=== PATIENT | male | born 1955 | race Caucasian/White ===

== ENCOUNTER 2019-02-06 13:29 | Outpatient (REF) | payer BC, SELFPAY ==
[2019-02-06 19:52] LABS: Anion Gap 7.4 mmol/L (3-11); BUN 25 mg/dL (7-18); CO2 30.6 mmol/L (21.0-32.0); CREATININE 0.98 mg/dL (0.70-1.30); Calcium 9.7 mg/dL (8.5-10.1); Chloride 102 mmol/L (98-107); Glucose 102 mg/dL (70-100); Potassium 4.3 mmol/L (3.5-5.1); Sodium 140 mmol/L (136-145)
== END 2019-02-06 13:49 ==
LOC: NCHCN 13:29
PROVIDERS: PCP Physician Assistant Medical; Visit Provider Physician Assistant Medical
DX: I10 Essential (primary) hypertension (principal)
CPT/HCPCS: 80048

== ENCOUNTER 2020-01-01 09:26 | Outpatient (REF) | payer BC, SELFPAY ==
[2020-01-01 19:40] LABS: ALT 53 U/L (16-63); AST 29 U/L (15-37); Albumin 4.2 g/dL (3.4-5.0); Alkaline Phosphatase 55 U/L (46-116); Anion Gap 9.2 mmol/L (3-11); BUN 20 mg/dL (7-18); Bilirubin, Total 0.8 mg/dL (0.2-1.0); CO2 29.8 mmol/L (21.0-32.0); CREATININE 0.98 mg/dL (0.70-1.30); Calcium 9.4 mg/dL (8.5-10.1); Calculated LDL 106 mg/dL (<100); Chloride 102 mmol/L (98-107); Cholesterol 159 mg/dL (<200); Glucose 98 mg/dL (74-106); HDL Cholesterol 33 mg/dL (40-60); Potassium 4.8 mmol/L (3.5-5.1); Sodium 141 mmol/L (136-145); Triglyceride 104 mg/dL (<150)
[2020-01-01 19:56] LABS: Creatine Kinase 122 U/L (39-308)
== END 2020-01-01 09:46 ==
LOC: NCHCN 09:26
PROVIDERS: PCP Physician Assistant Medical; Visit Provider Nurse Practitioner Family
DX: I10 Essential (primary) hypertension (principal); E78.5 Hyperlipidemia, unspecified
CPT/HCPCS: 80053; 80061; 82550

== ENCOUNTER 2021-01-02 13:22 | Outpatient (REF) | payer OTHER, SELFPAY ==
[2021-01-02 15:16] LABS: Abs Immature Grans 0.02 10^3/uL (0.0-0.06); Absolute Basophil Count 0.06 10^3/uL (0.0-0.2); Absolute Eosinophil Count 0.17 10^3/uL (0.0-0.7); Absolute Lymphocyte Count 1.62 10^3/uL (1.2-3.4); Absolute Monocyte Count 0.58 10^3/uL (0.1-0.8); Absolute Neutrophil Count 3.75 10^3/uL (1.2-6.7); Eosinophils % 2.7; HCT 47.5 % (40.0-50.0); HGB 16.4 g/dL (13.5-17.5); Immature Grans % 0.3; Lymphocytes % 26.1; MCH 31.9 pg (27.0-33.0); MCHC 34.5 % (32.0-36.0); MCV 92.4 fL (80-95); MPV 10.8 fL (8.0-11.0); Monocytes % 9.4; Neutrophils % 60.5; Nucleated RBC 0 %; Platelet Count 277 10^3/uL (130-400); RBC 5.14 10^6/uL (4.36-5.78); RDW 11.8 % (11.8-14.1)
[2021-01-02 15:56] LABS: ALT 45 U/L (16-63); AST 23 U/L (15-37); Albumin 4.3 g/dL (3.4-5.0); Alkaline Phosphatase 62 U/L (46-116); Anion Gap 9.9 mmol/L (3-11); BUN 19 mg/dL (7-18); Bilirubin, Total 0.9 mg/dL (0.2-1.0); CO2 29.1 mmol/L (21.0-32.0); CREATININE 1.1 mg/dL (0.70-1.30); Calcium 9.8 mg/dL (8.5-10.1); Calculated LDL 96 mg/dL (<100); Chloride 104 mmol/L (98-107); Cholesterol 144 mg/dL (<200); Glucose 105 mg/dL (74-106); HDL Cholesterol 35 mg/dL (40-60); Potassium 4.8 mmol/L (3.5-5.1); Sodium 143 mmol/L (136-145); Total Protein 7.2 g/dL (6.4-8.2); Triglyceride 67 mg/dL (<150)
== END 2021-01-02 13:23 | disposition home or self-care (01) ==
LOC: NCHCN 13:22
PROVIDERS: PCP Physician Assistant Medical; Visit Provider Physician Assistant
DX: E78.5 Hyperlipidemia, unspecified (principal); I10 Essential (primary) hypertension
CPT/HCPCS: 80053; 80061; 85025

== ENCOUNTER 2021-07-02 15:28 | Outpatient (REF) | payer MEDICARE, SELFPAY ==
[2021-07-02 21:00] LABS: Anion Gap 9.1 mmol/L (3-11); BUN 18 mg/dL (7-18); CO2 28.9 mmol/L (21.0-32.0); CREATININE 0.9 mg/dL (0.70-1.30); Calcium 9.3 mg/dL (8.5-10.1); Chloride 104 mmol/L (98-107); Glucose 99 mg/dL (74-106); Magnesium 2.2 mg/dL (1.8-2.4); Potassium 4.1 mmol/L (3.5-5.1); Sodium 142 mmol/L (136-145); Vitamin B12 620 pg/mL (193-986)
== END 2021-07-02 15:29 | disposition home or self-care (01) ==
LOC: NCHCN 15:28
PROVIDERS: PCP Physician Assistant Medical; Visit Provider Physician Assistant
DX: I10 Essential (primary) hypertension (principal); R25.2 Cramp and spasm; G62.9 Polyneuropathy, unspecified
CPT/HCPCS: 80048; 82607; 83735

== ENCOUNTER 2022-07-23 10:28 | Outpatient (REF) | payer MEDICARE, SELFPAY ==
[2022-07-23 19:52] LABS: BUN 21 mg/dL (7-18); Calcium 9.4 mg/dL (8.5-10.1); Chloride 104 mmol/L (98-107); Estimated GFR 83.01 (mL/min/1.73m2); Glucose 107 mg/dL (74-106); Potassium 4.5 mmol/L (3.5-5.1); Sodium 141 mmol/L (136-145)
== END 2022-07-23 10:29 | disposition home or self-care (01) ==
LOC: NCHCN 10:28
PROVIDERS: PCP Physician Assistant Medical; Visit Provider Physician Assistant
DX: I10 Essential (primary) hypertension (principal)
CPT/HCPCS: 80048

== ENCOUNTER 2023-07-28 17:47 | Outpatient (REF) | payer MEDICARE, SELFPAY ==
[2023-07-28 21:33] LABS: Hemoglobin A1C 5.5 % (<5.7)
[2023-07-28 21:36] LABS: ALT 44 U/L (16-63); AST 27 U/L (15-37); Alkaline Phosphatase 66 U/L (46-116); Anion Gap 5.2 mmol/L (3-11); BUN 20 mg/dL (7-18); Bilirubin, Total 0.8 mg/dL (0.2-1.0); CO2 29.8 mmol/L (21.0-32.0); Calcium 9.7 mg/dL (8.5-10.1); Chloride 103 mmol/L (98-107); Estimated GFR 82.49 (mL/min/1.73m2); Glucose 101 mg/dL (74-106); Potassium 4.1 mmol/L (3.5-5.1); Sodium 138 mmol/L (136-145); Total Protein 7.6 g/dL (6.4-8.2)
== END 2023-07-28 17:48 | disposition home or self-care (01) ==
LOC: NCHCN 17:47
PROVIDERS: PCP Physician Assistant Medical; Visit Provider Physician Assistant
DX: I10 Essential (primary) hypertension (principal); E78.5 Hyperlipidemia, unspecified; E66.3 Overweight; R79.89 Other specified abnormal findings of blood chemistry
CPT/HCPCS: 80053; 83036

== ENCOUNTER 2024-10-11 16:04 | Outpatient (REF) | payer MEDICARE, SELFPAY ==
[2024-10-11 19:40] LABS: ALT 48 U/L (16-63); AST 30 U/L (15-37); Albumin 4.1 g/dL (3.4-5.0); Alkaline Phosphatase 63 U/L (46-116); Anion Gap 5.4 mmol/L (3-11); BUN 19 mg/dL (7-18); Bilirubin, Total 0.64 mg/dL (0.2-1.0); CO2 29.6 mmol/L (21.0-32.0); CREATININE 1.1 mg/dL (0.70-1.30); Calcium 9.6 mg/dL (8.5-10.1); Calculated LDL 85 mg/dL (<100); Chloride 102 mmol/L (98-107); Cholesterol 154 mg/dL (<200); Estimated GFR 72.67 (mL/min/1.73m2); Glucose 104 mg/dL (74-106); HDL Cholesterol 42 mg/dL (40-60); Potassium 4.4 mmol/L (3.5-5.1); Sodium 137 mmol/L (136-145); Total Protein 7.9 g/dL (6.4-8.2); Triglyceride 135 mg/dL (<150)
[2024-10-16 12:32] LABS: Hepatitis C Ab w Rflx HCV PCR Negative (Negative)
== END 2024-10-11 16:05 | disposition home or self-care (01) ==
LOC: NCHCN 16:04
PROVIDERS: PCP Physician Assistant; Visit Provider Physician Assistant
DX: I10 Essential (primary) hypertension (principal); Z11.59 Encounter for screening for other viral diseases; E78.5 Hyperlipidemia, unspecified
CPT/HCPCS: 80053; 80061; 86803

== ENCOUNTER 2025-10-04 11:00 | Outpatient (REF) | payer MEDICARE, SELFPAY ==
[2025-10-04 19:28] LABS: ALT 50 U/L (10-49); AST 33 U/L (<34); Albumin 4.6 g/dL (3.4-5.0); Alkaline Phosphatase 63 U/L (46-116); Anion Gap 6.1 mmol/L (3-11); BUN 18 mg/dL (9-23); Bilirubin, Total 0.90 mg/dL (0.2-1.2); CO2 31.9 mmol/L (20.0-31.0); Calcium 9.8 mg/dL (8.3-10.6); Chloride 102 mmol/L (98-107); Glucose 94 mg/dL (74-106); Potassium 4.3 mmol/L (3.5-5.1); Sodium 140 mmol/L (136-145); Total Protein 7.6 g/dL (5.7-8.2)
[2025-10-05 19:16] LABS: PSA, Screening 1.0 ng/mL (<=6.5)
== END 2025-10-04 11:01 | disposition home or self-care (01) ==
LOC: NCHCN 11:00
PROVIDERS: PCP Physician Assistant; Visit Provider Physician Assistant
DX: Z80.42 Family history of malignant neoplasm of prostate (principal); I10 Essential (primary) hypertension
CPT/HCPCS: 80053; 84153